=== PATIENT | male | born 1990 | race Two or more races ===

== ENCOUNTER 2018-02-27 10:53 | Inpatient (IN) | payer SELFPAY ==
[~2018-02-27] VITALS: Ht 165.1 cm; Wt 71.3 kg
[2018-02-27 11:32] LABS: Urine Bacteria NONE SEEN /hpf (None Seen); Urine Blood 1+ /uL (Negative); Urine Specific Gravity 1.029 (1.001-1.035); Urine WBC 3 /hpf (0 - 3)
[2018-02-27 11:57] LABS: Basophils # (auto) 0 uL; Basophils % (auto) 0.3 % (0.0-2.0); Eosinophils # (auto) 0 uL; Eosinophils % (auto) 0.2 % (0.0-7.0); Hematocrit 42.4 % (41.0-53.0); Hemoglobin 14.8 g/dL (13.5-17.5); Lymphocytes # (auto) 0.4 uL; Lymphocytes % (auto) 2.5 % (10.0-50.0); Mean Corpuscular Hemoglobin 32.4 pg (28.0-32.0); Mean Corpuscular Hgb Conc. 34.9 g/dL (32.0-36.0); Mean Corpuscular Volume 92.9 fL (80.0-100.0); Monocytes # (auto) 0.6 uL; Monocytes % (auto) 4.1 % (0.0-12.0); Neutrophils # (auto) 13.1 uL; Neutrophils % (auto) 92.9 % (37.0-80.0); Nucleated Red Blood Cells % 0.1 %; Platelet Count (auto) 130 10^3/uL (140-450); Red Blood Cells 4.57 10^6/uL (4.5-5.90); Red Cell Distribution Width 12.7 % (11.8-14.3); White Blood Cell 14.1 10^3/uL (4.4-10.8)
[2018-02-27 12:12] LABS: Albumin 3.6 g/dL (3.4-5.0); Calcium 9.1 mg/dL (8.5-10.1); Potassium 3.3 mmol/L (3.5-5.1)
[2018-02-27 12:15] LABS: BUN/Creatinine Ratio 13.7; Bilirubin, Total 2.4 mg/dL (0.2-1.0); Total Protein 7.7 g/dL (6.4-8.2)
[2018-02-27] MEDS ORDERED: MORPHINE SULFATE 4 MG/ML SYR/VIAL IV ONE (12:15)
[2018-02-27] MEDS ORDERED: ceFAZolin 1GM/50ML 50 ML IV ONE (12:15)
[2018-02-27] MEDS ORDERED: ONDANSETRON HCL 4 MG/2 ML VIAL IV ONE (12:15)
[2018-02-27 13:19] LABS: INR 1.06 (0.9-1.15); Prothrombin Time 11.3 sec (9.27-12.13)
[2018-02-27 13:36] LABS: Amylase 47 U/L (25-115); Lipase 125 U/L (73-393)
[2018-02-27] MEDS ORDERED: ONDANSETRON HCL 4 MG/2 ML VIAL IV PRN ×2 (15:15→17:15)
[2018-02-27] MEDS ORDERED: metroNIDAZOLE 500MG/100ML 100 ML IV ONE (15:15)
[2018-02-27] MEDS ORDERED: cefTRIAXone 1GM/50ML D5W 50 ML IV ONE (15:15)
[2018-02-27] MEDS ORDERED: MORPHINE SULFATE 4 MG/ML SYR/VIAL IV PRN ×2 (15:15)
[2018-02-27] MEDS ORDERED: NITROGLYCERIN 0.4 MG SL TAB SL PRN (15:15)
[2018-02-27] MEDS: SODIUM CHLORIDE 0.9% 1,000 ML IV SCH ×2 (15:26→23:27)
[2018-02-27] MEDS ORDERED: POTASSIUM CHLORIDE 20 MEQ, LIDOCAINE 1% (LOCAL ANESTH.) 2 ML in SODIUM CHL 0.9% 100 ML IV ONE (15:30)
[2018-02-27] MEDS ORDERED: MEPERIDINE HCL (50 MG/ML) 1 ML VIAL ONE (16:01)
[2018-02-27] MEDS ORDERED: MIDAZOLAM HCL 1MG/1ML-2 ML VIAL ONE (16:01)
[2018-02-27] MEDS ORDERED: fentaNYL CITRATE 100 MCG/2 ML VL ONE (16:01)
[2018-02-27] MEDS ORDERED: ROCURONIUM 10MG/ML 10ML VIAL IV ONE (16:01)
[2018-02-27] MEDS ORDERED: PROPOFOL 10 MG/ML 20 ML IV ONE (16:02)
[2018-02-27] MEDS ORDERED: NEOSTIGMINE 1 MG/ML INJ (10mg/10ML VIAL) ONE (16:02)
[2018-02-27] MEDS ORDERED: ONDANSETRON HCL 4 MG/2 ML VIAL ONE (16:02)
[2018-02-27] MEDS ORDERED: GLYCOPYRROLATE 0.2 MG/ML 1ML VIAL ONE (16:02)
[2018-02-27] MEDS ORDERED: SODIUM CHLORIDE LOCK 10 ML ONE (16:02)
[2018-02-27] MEDS ORDERED: HYDROmorphone HCL 2 MG/ML VL IV PRN (17:00)
[2018-02-27] MEDS ORDERED: KETOROLAC TROMETH 30 MG/ML 1ML VIAL IV ONE (17:00)
[2018-02-27] MEDS ORDERED: METOCLOPRAMIDE HCL 5MG/ml INJ 2ml VIAL IV ONE (17:00)
[2018-02-27] MEDS ORDERED: KETOROLAC TROMETH 60MG/2ML VIAL IM ONE (17:00)
[2018-02-27] MEDS ORDERED: HYDROmorphone HCL 2 MG/ML VL IV ONE (17:15)
[2018-02-27] MEDS: PIPERACILLIN-TAZOB 3.375GM 100 ML IV SCH (18:00)
[2018-02-27] MEDS ORDERED: POTASSIUM CHL 20 Meq TABLET PO ONE (21:30)
[2018-02-27 21:37] VITALS: BP 134/65
[2018-02-27] MEDS: ACETAMINOPHEN 325 MG TAB PO PRN (21:57)
[2018-02-27] MEDS: metroNIDAZOLE 500MG/100ML 100 ML IV SCH (22:00)
[2018-02-27] MEDS ORDERED: metroNIDAZOLE 500MG/100ML 100 ML IV SCH (22:00)
[2018-02-28] MEDS: PIPERACILLIN-TAZOB 3.375GM 100 ML IV SCH ×5 (01:17→23:55)
[2018-02-28 04:49] VITALS: BP 101/60
[2018-02-28] MEDS: metroNIDAZOLE 500MG/100ML 100 ML IV SCH ×2 (05:39→13:33)
[2018-02-28 06:14] LABS: Calcium 8.7 mg/dL (8.5-10.1)
[2018-02-28 06:18] LABS: BUN/Creatinine Ratio 11.7; Bilirubin, Total 2.4 mg/dL (0.2-1.0); Total Protein 6.9 g/dL (6.4-8.2)
[2018-02-28 06:27] LABS: Basophils # (auto) 0 uL; Basophils % (auto) 0.5 % (0.0-2.0); Eosinophils # (auto) 0.1 uL; Eosinophils % (auto) 1.5 % (0.0-7.0); Hematocrit 39.2 % (41.0-53.0); Hemoglobin 13.1 g/dL (13.5-17.5); Lymphocytes # (auto) 0.2 uL; Lymphocytes % (auto) 4.2 % (10.0-50.0); Mean Corpuscular Hemoglobin 31.7 pg (28.0-32.0); Mean Corpuscular Hgb Conc. 33.5 g/dL (32.0-36.0); Mean Corpuscular Volume 94.5 fL (80.0-100.0); Monocytes # (auto) 0.2 uL; Monocytes % (auto) 4.1 % (0.0-12.0); Neutrophils # (auto) 5.3 uL; Neutrophils % (auto) 89.7 % (37.0-80.0); Nucleated Red Blood Cells % 0.1 %; Platelet Count (auto) 112 10^3/uL (140-450); Red Blood Cells 4.15 10^6/uL (4.5-5.90); Red Cell Distribution Width 12.9 % (11.8-14.3); White Blood Cell 5.9 10^3/uL (4.4-10.8)
[2018-02-28] MEDS: SODIUM CHLORIDE 0.9% 1,000 ML IV SCH ×2 (07:47→16:22)
[2018-02-28 08:00] VITALS: BP 106/70
[2018-02-28] MEDS ORDERED: cefTRIAXone 1GM/50ML D5W 50 ML IV SCH (09:00)
[2018-02-28 09:03] VITALS: BP 106/70
[2018-02-28] MEDS: ACETAMINOPHEN 325 MG TAB PO PRN ×2 (10:43→20:10)
[2018-02-28 12:35] VITALS: BP 111/72
[2018-02-28] MEDS ORDERED: VANCOMYCIN PER PHARMACY 0 MG IV SCH (14:30)
[2018-02-28] MEDS: VANCOMYCIN 1GM/250ML 250 ML IV SCH (16:22)
[2018-02-28 17:15] VITALS: BP 105/62
[2018-02-28 22:00] VITALS: BP 123/63
[2018-03-01 05:00] VITALS: BP 125/76
[2018-03-01 05:23] LABS: Basophils # (auto) 0 uL; Basophils % (auto) 0.5 % (0.0-2.0); Eosinophils # (auto) 0.1 uL; Eosinophils % (auto) 1.5 % (0.0-7.0); Hematocrit 36.9 % (41.0-53.0); Hemoglobin 12.5 g/dL (13.5-17.5); Lymphocytes # (auto) 0.4 uL; Lymphocytes % (auto) 5.1 % (10.0-50.0); Mean Corpuscular Hemoglobin 31.9 pg (28.0-32.0); Mean Corpuscular Hgb Conc. 33.9 g/dL (32.0-36.0); Monocytes # (auto) 0.7 uL; Monocytes % (auto) 9.5 % (0.0-12.0); Neutrophils # (auto) 5.8 uL; Neutrophils % (auto) 83.4 % (37.0-80.0); Nucleated Red Blood Cells % 0.2 %; Platelet Count (auto) 127 10^3/uL (140-450); Red Blood Cells 3.92 10^6/uL (4.5-5.90); Red Cell Distribution Width 12.9 % (11.8-14.3); White Blood Cell 6.9 10^3/uL (4.4-10.8)
[2018-03-01] MEDS: VANCOMYCIN 1GM/250ML 250 ML IV SCH ×2 (05:24→16:44)
[2018-03-01] MEDS: SODIUM CHLORIDE 0.9% 1,000 ML IV SCH ×3 (05:29→16:48)
[2018-03-01 05:40] LABS: BUN/Creatinine Ratio 8.3; Calcium 8.6 mg/dL (8.5-10.1); Potassium 3.7 mmol/L (3.5-5.1)
[2018-03-01] MEDS: PIPERACILLIN-TAZOB 3.375GM 100 ML IV SCH ×3 (06:56→19:51)
[2018-03-01 08:57] VITALS: BP 126/91
[2018-03-01] MEDS: ACETAMINOPHEN 325 MG TAB PO PRN (12:13)
[2018-03-01 13:00] VITALS: BP 119/72
[2018-03-01 17:03] VITALS: BP 115/70
[2018-03-01 20:00] VITALS: BP 121/71
[2018-03-01 22:00] VITALS: BP 121/71
[2018-03-02] MEDS: PIPERACILLIN-TAZOB 3.375GM 100 ML IV SCH ×3 (00:35→12:02)
[2018-03-02] MEDS: SODIUM CHLORIDE 0.9% 1,000 ML IV SCH (02:04)
[2018-03-02 05:00] VITALS: BP 121/67
[2018-03-02 05:20] LABS: Basophils # (auto) 0 uL; Basophils % (auto) 0.4 % (0.0-2.0); Eosinophils # (auto) 0.2 uL; Eosinophils % (auto) 2.7 % (0.0-7.0); Hematocrit 36.4 % (41.0-53.0); Hemoglobin 12.7 g/dL (13.5-17.5); Lymphocytes # (auto) 0.9 uL; Lymphocytes % (auto) 13.6 % (10.0-50.0); Mean Corpuscular Hemoglobin 32.2 pg (28.0-32.0); Mean Corpuscular Hgb Conc. 34.8 g/dL (32.0-36.0); Mean Corpuscular Volume 92.6 fL (80.0-100.0); Monocytes # (auto) 1.2 uL; Monocytes % (auto) 17.7 % (0.0-12.0); Neutrophils # (auto) 4.3 uL; Neutrophils % (auto) 65.6 % (37.0-80.0); Platelet Count (auto) 170 10^3/uL (140-450); Red Blood Cells 3.93 10^6/uL (4.5-5.90); Red Cell Distribution Width 13.4 % (11.8-14.3); White Blood Cell 6.6 10^3/uL (4.4-10.8)
[2018-03-02 05:37] LABS: Calcium 8.4 mg/dL (8.5-10.1); Potassium 3.8 mmol/L (3.5-5.1)
[2018-03-02 05:42] LABS: BUN/Creatinine Ratio 9.1
[2018-03-02] MEDS: VANCOMYCIN 1GM/250ML 250 ML IV SCH (05:46)
[2018-03-02 08:31] VITALS: BP 130/77
== END 2018-03-02 15:24 | disposition home or self-care (01) | DRG 854 ==
LOC: ER 10:53 → TELE 15:09 → TELE-WESTW 18:14 → WEST WING 03-02 00:44
PROVIDERS: ADMIT Internal Medicine; ATTEND Internal Medicine
PROC: 0DTJ4ZZ Resection of Appendix, Percutaneous Endoscopic Approach (ICD-10-PCS; principal; 2018-02-27 16:31)
DX: A41.9 Sepsis, unspecified organism (principal); E87.1 Hypo-osmolality and hyponatremia; J98.11 Atelectasis; K35.891 Other acute appendicitis without perforation, with gangrene; D69.6 Thrombocytopenia, unspecified; E86.0 Dehydration; E87.6 Hypokalemia; K76.0 Fatty (change of) liver, not elsewhere classified
CPT/HCPCS: 36415; 71045; 74176; 76705; 80048; 80053; 80202; 81001; 82150; 83605; 83690; 85025; 85610; 86850; 86900; 86901; 87040; 93005; 96365; 96375; A6257; G0378; J0690; J0696; J1885; J2001; J2250; J2405; J2543; J2704; J3490

== ENCOUNTER 2018-11-21 20:55 | Emergency (ER) | payer MEDICAID ==
[~2018-11-21] VITALS: Ht 165.1 cm; Wt 71.7 kg
[2018-11-21 23:37] VITALS: BP 118/78
[2018-11-22] MEDS ORDERED: cefTRIAXone SOD 1,000 MG VL IM ONE (00:30)
[2018-11-22] MEDS ORDERED: TETANUS-DIPTH-ACEL PERTUSSIS 0.5ML SYRG IM ONE (00:30)
[2018-11-22] MEDS ORDERED: ACETAMINOPHEN/CODEINE#3 (300/30mg) TAB PO ONE (00:30)
== END 2018-11-22 06:04 | disposition home or self-care (01) ==
LOC: ER 20:55
DX: S61.211A Laceration without foreign body of left index finger without damage to nail, initial encounter (principal); W26.0XXA Contact with knife, initial encounter; Y93.89 Activity, other specified; Y99.8 Other external cause status; Y92.89 Other specified places as the place of occurrence of the external cause
CPT/HCPCS: 12004; 90471; 90715; 96372; 99283; J0696